=== PATIENT | male | born 1995 | race Caucasian/White ===

== ENCOUNTER 2017-10-13 00:56 | Emergency (ER) | payer SELFPAY ==
[2017-10-13] MEDS ORDERED: CYCLOBENZAPRINE HCL 10 MG TABLET ONE (01:51)
[2017-10-13] MEDS ORDERED: ACETAMINOPHEN 325 MG TAB ONE (01:51)
[2017-10-13] MEDS ORDERED: KETOROLAC TROMETHAMINE 30MG/ML ONE (03:30)
== END 2017-10-13 05:11 | disposition home or self-care (01) ==
LOC: EDH 00:56
DX: M79.651 Pain in right thigh (principal)
CPT/HCPCS: 76882; 96372; 99284; J1885